=== PATIENT | female | born 1985 | race African-American/Black ===

== ENCOUNTER 2021-01-02 01:12 | Emergency (ER) | payer OTHER ==
[2021-01-02] MEDS ORDERED: CYCLOBENZAPRINE10 MG PO (02:12)
[2021-01-02] MEDS ORDERED: DICLOFENAC SODI75 MG PO (02:12)
== END 2021-01-02 02:25 | disposition home or self-care (01) ==
LOC: FER 01:12
DX: S16.1XXA Strain of muscle, fascia and tendon at neck level, initial encounter (principal); I10 Essential (primary) hypertension; F17.210 Nicotine dependence, cigarettes, uncomplicated; X58.XXXA Exposure to other specified factors, initial encounter
CPT/HCPCS: 99283; J1885

== ENCOUNTER 2021-02-09 07:09 | Emergency (ER) | payer OTHER ==
[~2021-02-09 07:09] MED LIST: CYCLOBENZAPRINE10 MG PO; DICLOFENAC SODI75 MG PO
[2021-02-09] MEDS ORDERED: DICLOFENAC SODI75 MG PO (07:46)
== END 2021-02-09 08:10 | disposition home or self-care (01) ==
LOC: FER 07:09
DX: M76.61 Achilles tendinitis, right leg (principal); I10 Essential (primary) hypertension; F17.210 Nicotine dependence, cigarettes, uncomplicated; Z79.899 Other long term (current) drug therapy
CPT/HCPCS: 73610; J1040